=== PATIENT | male | born 1990 ===

== ENCOUNTER 2017-06-11 21:43 | Emergency (ER) | payer SELFPAY ==
[2017-06-11 22:07] VITALS: BP 133/82
--- NOTE | 2017-06-12 02:09 | Ultrasound Report ---
FINAL REPORT EXAM: US TESTICULAR DOPPLER COMP HISTORY: testicular pain/swelling TECHNIQUE: Routine sonographic evaluation was obtained of the scrotum with Doppler interrogation of the testicles. FINDINGS: The right testicle is normal size contour blood flow and echotexture measuring 5 cm x 2.5 cm x 3.5 cm. The right epididymis is normal size contour and echotexture. Lateral to the right testicle is a complex vascular mass measures 6.6 cm x 3 cm x 2 cm. This is of uncertain etiology. One possibility is that there is a large hernia. Medial to the right epididymal head is a 4 millimeter nodular density which is nonspecific. The left testicle is normal size contour blood flow and echotexture measuring 5.2 cm x 2.5 cm x 3.7 cm. The left epididymis is normal size and echotexture. There is no evidence of hydrocele bilaterally. The posterior aspect of the scrotum shows nonspecific skin thickening. IMPRESSION: No evidence of testicular neoplasia, torsion, or hydrocele. Complex extratesticular lesion lateral to the right testicle measures 6.6 cm x 3 cm x 2 cm. It is very vascular. Diagnostic consideration would include a large hernia as well as phlegmonous changes. Correlation with clinical exam needed. 3-4 millimeter nodular density medial to the right epididymal head which is of uncertain etiology. Nonspecific thickening of the scrotum posteriorly.
[2017-06-12 06:02] LABS: Bilirubin,Urine NEG (Negative); Blood,Urine NEG (Negative); Color,Urine Yellow (Yellow); Mucus,Urine FEW /HPF; Nitrite,Urine NEG (Negative); Protein,Urine <15 mg/dL mg/dL (Negative)
== END 2017-06-12 01:30 | disposition left against medical advice (07) ==
LOC: ED 21:43
DX: R10.30 Lower abdominal pain, unspecified (principal); Z53.21 Procedure and treatment not carried out due to patient leaving prior to being seen by health care provider
CPT/HCPCS: 81001; 93975